=== PATIENT | male | born 1980 | race Asian ===

== ENCOUNTER 2016-05-06 20:22 | Emergency (ER) | payer OTHER ==
--- NOTE | 2016-05-06 21:09 | UCPHY ---
H & P Patient Type: New HPI/ROS: CHIEF COMPLAINT: Left-sided headache. HISTORY OF PRESENT ILLNESS: The patient is a 36-year-old male who presents with intermittent throbbing left-sided headache for the past 2 days. The pain is worsened with movement (especially bending over or walking). He also admits having palpitations and increased heart rate that is correlated with a pounding sensation in his head over the past few days. He had cold symptoms just prior to the onset of the pain but has otherwise not been sick. He denies recent head traumas. He denies nausea, vomiting, vision changes, neck pain, ataxic gait, new numbness or tingling in his extremities or face. He reports having similar headaches prior to this one when he gets sinus colds, however the intermittent throbbing pain is unusual for him. He is anticoagulated on Plavix. He has no family history of brain aneurysm. No recent changes in medication. REVIEW OF SYSTEMS: Aside from elements discussed in the HPI, a comprehensive 10-point review of systems was reviewed and is negative. PAST MEDICAL HISTORY: ME with stent placement. SOCIAL HISTORY: Here with girlfriend. VITAL SIGNS: Reviewed by me GENERAL: Well-developed, well-nourished, resting comfortably in no respiratory distress. HEENT: Atraumatic. Eyes: No icterus, no injection. PERRL, EOMI. No tenderness over temporal artery. Mouth: moist mucous membranes. No erythema or lesions. Neck: supple with no adenopathy. No meningismus, supple. Negative Kernig's and Brudzinski's. LUNGS: Clear to auscultation bilaterally, no wheezes, rhonchi or rales. CARDIAC: Regular rate and rhythm, no rubs, murmurs or gallops. ABDOMEN: Soft, nontender, nondistended, bowel sounds normal. BACK: No CVA tenderness. EXTREMITIES: No trauma. No edema. Range of motion is normal throughout. NEURO: Alert and oriented, motor strength 5/5, sensation intact to light touch. Grossly nonfocal. SKIN: Warm and dry, no rash. PSYCHIATRIC: Normal mentation, no agitation. Portions of this note were transcribed by a senior medical technologist. I personally performed a history, physical exam, medical decision making, and confirmed accuracy of information the transcribed note. Constitutional: Initial Vital Signs Temperature (C) 37.1 C 05/06/16 21:09 Heart Rate 62 05/06/16 21:09 Respiratory Rate 16 05/06/16 21:09 Blood Pressure 110/67 05/06/16 21:09 O2 Sat (%) 100 05/06/16 21:09 O2 Delivery Mode Room Air Allergies/Adverse Reactions: No Known Allergies Allergy (Verified 05/06/16 21:08) Home Medications: Medication Instructions Recorded Aspirin [Aspirin 325 mg] 325 mg PO HS 06/05/10 Clopidogrel Bisulfate [Plavix] 75 mg PO HS 06/05/10 Propranolol HCl [Inderal 10mg (RX)] 10 mg PO PRN 01/06/12 Crestor 20mg (*) 05/06/16 Hydrocodone/APAP 5/325 [[place] 1 tab PO Q6H PRN #10 tab 05/06/16 5/325 (RX)] Medical Decision Making - Diagnostics Imaging: Study: CT of the head without IV Contrast. Indication: Pain. Results: No acute process. The study was read by the radiologist, Dr. Cooper. I viewed the images myself on the PACS system. ED Course/Re-evaluation: Head CT ordered. Patient declined pain medications. Departure - Departure Disposition: Home, Routine, Self-Care Clinical Impression: Headache Condition: Good Instructions: Hydrocodone/Acetaminophen (By mouth), Acute Headache (ED) Additional Instructions: Take 650mg Tylenol every 4-6 hours as needed for pain. Take Hydrocodone as prescribed for pain. Follow up with your primary care provider or Dr. Melchor, neurology, tomorrow if you have continued headache. Return to Urgent Care or seek out the emergency department if you experience serious worsening of condition. Referrals: Lobo Mccallum DO [Primary Care Provider] - As per Instructions Betina Melchor MD [Medical Doctor] - As per Instructions Prescriptions: Hydrocodone/APAP 5/325 [[place] 5/325 (RX)] 1 tab PO Q6H PRN #10 tab PRN Reason: Pain - PQRS PQRS Measurement: Not applicable. Report Scribed for: Julia Garcia Report Scribed by: Sriram Cazares Date of Report: 05/06/16 Time of Report: 21:08
[2016-05-06 21:12] VITALS: BP 110/67; PULSE 62; RESP 16; TEMP 98.7; O2SAT 100
--- NOTE | 2016-05-06 22:26 | CT ---
CT Head (Without Contrast) May 06, 2016 Indication: Left-sided headache for 2 days. Technique: Standard noncontrast head CT protocol utilizing 5-mm thick collimated slices and field of view of 23 cm. Dose reduction techniques were utilized. Findings: The brain is normally developed. No intracranial hemorrhage, mass lesion, swelling, or ext raaxial fluid collection. The ventricles are normal caliber and midline. The pillai and white matter fabian s normal attenuation. No evidence of ischemia. The bones are unremarkable. The paranasal sinuses are clear. A 1.5-cm retention cyst is present in the left maxillary sinus. Impression: Normal brain. No intracranial hemorrhage, mass, or evidence of ischemia. Comment: Case was discussed with Dr. Julia Garcia at 10:18 p.m. on May 06, 2016.
== END 2016-05-06 22:24 | disposition home or self-care (01) ==
LOC: CED 20:22
DX: R51 Headache (principal); I25.2 Old myocardial infarction; Z95.5 Presence of coronary angioplasty implant and graft
CPT/HCPCS: 70450-PO; G0463-PO